=== PATIENT | female | born 1970 | race Caucasian/White ===

== ENCOUNTER 2018-05-05 05:53 | Day surgery (SDC) | payer OTHER ==
[2018-05-05] MEDS ORDERED: hydrALAzine 20 MG INJ IV (06:30)
[2018-05-05] MEDS ORDERED: EPHEDrine SULFATE 50 MG/5 ML SYG IV (06:30)
[2018-05-05] MEDS ORDERED: HYDROmorphONE 1 MG/5 ML IV SYRINGE IV ×3 (06:30)
[2018-05-05] MEDS ORDERED: MEPERIDINE 25 MG INJ IV (06:30)
[2018-05-05] MEDS ORDERED: DIPHENHYDRAMINE 50 MG INJ IV (06:30)
[2018-05-05] MEDS ORDERED: ATROPINE 1 MG/10 ML SYRINGE IV (06:30)
[2018-05-05] MEDS ORDERED: OXYCODONE/ACETAMINOPHEN (5/325) TAB PO ×2 (06:30)
[2018-05-05] MEDS ORDERED: LABETALOL HCL 20MG INJ IV (06:30)
[2018-05-05] MEDS ORDERED: morphine (1 MG/ML) 10ML SYRINGE IV ×3 (06:30)
[2018-05-05] MEDS ORDERED: FENTAnyl 50 MCG/ML VIAL IV ×2 (06:30)
[2018-05-05] MEDS ORDERED: ONDANSETRON 4 MG INJ IV (06:30)
[2018-05-05] MEDS ORDERED: MIDAZOLAM 1 MG/ML 2 ML INJ IV (06:30)
[2018-05-05] MEDS ORDERED: NEOSTIGMINE 3 MG/3 ML SYRINGE (06:47)
[2018-05-05] MEDS ORDERED: GLYCOPYRROLATE 0.4 MG INJ (06:47)
[2018-05-05] MEDS ORDERED: ROCURONIUM 50 MG INJ (06:47)
[2018-05-05] MEDS ORDERED: FENTAnyl 50 MCG/ML VIAL ×2 (06:47→08:22)
[2018-05-05] MEDS ORDERED: LIDOCAINE 2% (SDV) 5 ML INJ (06:47)
[2018-05-05] MEDS ORDERED: PROPOFOL 20 ML (06:47)
[2018-05-05] MEDS ORDERED: DEXAMETHASONE 4 MG/ML 1 ML INJ (06:48)
[2018-05-05] MEDS ORDERED: MIDAZOLAM 1 MG/ML 2 ML INJ (06:48)
[2018-05-05] MEDS ORDERED: ONDANSETRON 4 MG INJ (06:48)
[2018-05-05] MEDS: VANCOMYCIN 1 GM (PMX) 250 ML IVPB (07:13)
[2018-05-05] MEDS ORDERED: POLYMYXIN/BACITRACIN 1L IRRIG (07:32)
[2018-05-05] MEDS ORDERED: LIDOCAINE 2% (MDV) 20 ML INJ ×2 (07:32→08:06)
[2018-05-05] MEDS ORDERED: BUPIVACAINE 0.5% (SDV) 30 ML INJ (07:32)
[2018-05-05] MEDS: POLYMYXIN/BACITRACIN 1L IRRIG IRR (07:35)
[2018-05-05] MEDS: BUPIVACAINE 0.5% (MPF) 30 ML INJ INJ (07:35)
[2018-05-05] MEDS: LIDOCAINE 2% (MDV) 20 ML INJ INJ (07:35)
[2018-05-05] MEDS: LACTATED RINGER'S 1,000 ML IV (09:17)
== END 2018-05-05 10:42 | disposition home or self-care (01) ==
LOC: SDS 05:53
DX: T84.84XA Pain due to internal orthopedic prosthetic devices, implants and grafts, initial encounter (principal); Y79.8 Miscellaneous orthopedic devices associated with adverse incidents, not elsewhere classified; Y83.8 Other surgical procedures as the cause of abnormal reaction of the patient, or of later complication, without mention of misadventure at the time of the procedure
CPT/HCPCS: 20680; 73630; 84703; 88300